=== PATIENT | female | born 1960 | race Caucasian/White ===

== ENCOUNTER → 2024-12-02 | Outpatient (CLI) | payer MEDICARE, OTHER, SELFPAY ==
[2024-12-02 22:12] LABS: Basophil# 0.12 X10^3/uL; Basophil% 1.5 % (0-1); Eosinophil# 0.27 X10^3/uL; Eosinophils% 3.3 % (0-5); Hematocrit 47.5 % (37-47); Lymphocyte % 25.8 % (19-41); Mean Corp Hgb Conc 33.7 g/dL (32-36); Mean Corpuscular Hgb 30.6 pg (27.0-32.0); Mean Corpuscular Volume 90.8 fL (81-99); Mean Platelet Vol. 9.8 fl (6.2-12.0); Monocyte# 0.65 X10^3/uL; NRBC Flagged by Analyzer 0 % (0-5); Neutrophil # 4.95 X10^3/uL (2.7-7.7); Neutrophil % 60.9 % (47-70); Platelet Count 418 K/mm3 (150-450); RBC Distribution Width CV 12.1 % (11.6-14.6); RBC Distribution Width SD 40.2 fl (35.1-43.9); Red Blood Count 5.23 M/mm3 (4.2-5.4); White Blood Count 8.1 K/mm3 (4.4-11.0)
[2024-12-02 22:55] LABS: Hemoglobin A1c 5.2 % (<=5.6)
[2024-12-02 23:08] LABS: ALB/GLOB Ratio 1.3 RATIO (0.9-2.4); AST(SGOT) 22 U/L (<=31); Alanine Aminotransfer ALT/SGPT 17 U/L (<=34); Albumin, Serum 4.5 g/dL (3.4-4.8); Alkaline Phosphatase 97 U/L (35-104); Anion Gap 12 (5-15); BUN 14 mg/dL (4-19); BUN/Creat Ratio 20.3 RATIO (10-20); Calcium,Total 9.8 mg/dL (7.6-11.0); Carbon Dioxide 23.7 mmol/L (21.0-32.0); Chloride 105 mmol/L (98-108); Cholesterol 215 mg/dL (<=200); Creatinine, Serum 0.71 mg/dL (0.70-1.20); EST Glomerular Filtration Rate 94 (>60); Free T3 2.8 pg/mL (2.18-3.98); Globulin 3.4 g/dL (2.2-4.2); Glucose 105 mg/dL (70-99); High Density Lipoprotein 49 mg/dL; Low Density Lipoprotein Calc. 131 mg/dL; Potassium 4.1 mmol/L (3.3-5.1); Protein, Total 7.9 g/dL (5.9-8.4); Sodium Level 140 mmol/L (133-145); Total Bilirubin 0.49 mg/dL (0.00-1.30); Triglycerides 175 mg/dL; Very Low Density Lipoprotein 35 mg/dL (5-40); cholesterol:hdl ratio screen 4.37
[2024-12-02 23:10] LABS: CRP < 3.00 mg/L (0.0-3.0); Rheumatoid Factor < 10.0 IU/mL (<15); Uric Acid 5.8 mg/dL (2.6-6.0)
[2024-12-04 14:08] LABS: Lyme Scn Total Ab w/Rflx Negative (Negative)
[2024-12-05 14:09] LABS: Anti-Centromere B Ab <0.2 AI (0.0-0.9); Anti-Chromatin <0.2 AI (0.0-0.9); Anti-Jo <0.2 AI (0.0-0.9); Anti-Scleroderma-70 AB <0.2 AI (0.0-0.9); Anti-dsDNA Ab <1 IU/mL (0-9); RNP Ab 0.4 AI (0.0-0.9); SJOGREN'S Anti-SS-A test < 0.2 AI (0.0-0.9); SJOGREN'S Anti-SS-B test < 0.2 AI (0.0-0.9); Smith Ab <0.2 AI (0.0-0.9); Vitamin D 1,25-Dihydroxy 74.3 pg/mL (24.8-81.5)
== END | disposition home or self-care (01) ==
PROVIDERS: Referring Provider Nurse Practitioner; Visit Provider Nurse Practitioner
DX: M32.9 Systemic lupus erythematosus, unspecified (principal); R26.2 Difficulty in walking, not elsewhere classified; R29.898 Other symptoms and signs involving the musculoskeletal system; E55.9 Vitamin D deficiency, unspecified; E78.5 Hyperlipidemia, unspecified; E03.9 Hypothyroidism, unspecified; I10 Essential (primary) hypertension; R73.9 Hyperglycemia, unspecified
CPT/HCPCS: 80053; 80061; 82652; 83036; 84443; 84481; 84550; 85025; 86140; 86225; 86235; 86431; 86618

== ENCOUNTER → 2025-04-02 | Outpatient (CLI) | payer MEDICARE, OTHER, SELFPAY ==
[2025-04-02 14:22] LABS: Hematocrit 45.5 % (37-47); Hemoglobin 15.5 g/dL (12.0-15.0); Mean Corp Hgb Conc 34.1 g/dL (32-36); Mean Corpuscular Volume 90.8 fL (81-99); Mean Platelet Vol. 8.9 fl (6.2-12.0); Platelet Count 400 K/mm3 (150-450); RBC Distribution Width CV 11.9 % (11.6-14.6); RBC Distribution Width SD 39.6 fl (35.1-43.9); Red Blood Count 5.01 M/mm3 (4.2-5.4); White Blood Count 7.8 K/mm3 (4.4-11.0)
[2025-04-02 15:06] LABS: Anion Gap 12 (5-15); BUN 13 mg/dL (4-19); BUN/Creat Ratio 19.9 RATIO (10-20); Calcium,Total 9.5 mg/dL (7.6-11.0); Carbon Dioxide 24.9 mmol/L (21.0-32.0); Chloride 105 mmol/L (98-108); Glucose 97 mg/dL (70-99); Potassium 4.2 mmol/L (3.3-5.1)
== END | disposition home or self-care (01) ==
LOC: PSN 13:40
PROVIDERS: PCP Nurse Practitioner; Referring Provider Otolaryngology; Visit Provider Otolaryngology
DX: Z01.812 Encounter for preprocedural laboratory examination (principal); Z01.810 Encounter for preprocedural cardiovascular examination
CPT/HCPCS: 36415; 80048; 85027; 93005

== ENCOUNTER → 2025-04-13 | Outpatient (CLI) | payer MEDICARE, OTHER, SELFPAY ==
--- NOTE | 2025-04-13 10:55 | PHA_PTH ---
PATIENT: CAMPBELL PRECIADO LOC: [facility] U#:[id number] AGE/SX: 65/F ROOM: RE04/13/[address]: Dr. Braden Chopra MD : 1960 BED: DIS: 04/13/2025 SPEC #: [id number] RECD: 04/13/25 15:16 STATUS: KWESI VERONIQUE #: [id number] VA: 04/13/25 10:[address]: Braden Chopra DEPT: SURGICAL PATHOLOGY RECD BY: [address] ENTERED: 04/13/25 15:44 SP TYPE: PHARYNX BX OTHR DR: Diamond Ryan, DECK CADET-C Tissues: A - Nasopharynx, NOS B - Nasopharynx, NOS Procedures: Surgery Specimen Level IV HEADER OPERATION: Biopsy of nasopharynx PRE-OP DIAGNOSIS: Benign neoplasm of nasopharynx TISSUE SUBMITTED: A- Nasopharynx biopsy, B- Nasopharynx (lymph node protocol) MICROSCOPIC DIAGNOSIS A. Nasopharynx, biopsy: * Lymphoid tissue present. * Final diagnosis is PENDING expert consultation at [facility]; a separate report will follow. B. Nasopharynx, "lymph node protocol", biopsy: * Lymphoid tissue present. * A veterans service representative sample was placed in RPMI and forwarded to [facility] for immunophenotyping (flow cytometry); a separate report will follow. MICROSCOPIC DESCRIPTION Slides are reviewed. GROSS DESCRIPTION A. Received in formalin labeled with the patient's name and date of . Designated as " biopsy nasopharynx" are 2 flores tissue fragments, 0.4 cm and 1.2 cm. Entirely submitted in 1 cassette. B. Received in saline labeled the patient's name and date of . Designated as "biopsy nasopharynx (in saline) lymph node protocol" is a 1.0 x 0.7 x 0.2 cm aggregate of flores-pink tissue fragments. A portion is placed in RPMI. The remainder of the specimen is entirely submitted in 1 cassette. [place] 04/13/2025 CPT:[id number] ADDENDUM ADDENDUM ADDENDUM ADDENDUM ADDENDUM ADDENDUM ADDENDUM ADDENDUM ADDENDUM ADDENDUM ADDENDUM ADDENDUM ADDENDUM ADDENDUM ADDENDUM ADDENDUM ADDENDUM ADDENDUM 04/20/2025 11:39 ADDENDUM 04/20/2025 11:39 ADDENDUM 04/20/2025 11:39 ADDENDUM 04/20/2025 11:39 ADDENDUM 04/20/2025 11:39 ADDENDUM 04/21/2025 09:28 This addendum is added to incorporate an outside pathology consultation report. (Note: this report is ONLY for the part B flow cytometry test. The FINAL DIAGNOSIS from [facility] is PENDING.) B) Laboratory Interpretation: There is no immunophenotypic evidence of an abnormal population of B lymphocytes or T lymphocytes. Phenotypic Description: Flow cytometric analysis of the nasopharynx lymph node was performed using a ten-color technique with a gating strategy based on CD45 staining and light side scatter characteristics. The concentrated specimen is adequate based on a viability of 98.2% as assessed by 7AAD dye exclusion. Lymphocytes represent 97.4% of the total events analyzed. Of the lymphocytes: 34.5% are B cells (CD19+) with a [place]:Lambda ratio of 16.11, 65.4% are T cells (CD3+) with a CD4:CD8 ratio of 4.7 and 0.7% are NK cells (positive for CD56 and/or CD16 and negative for CD3). Please see complete above mentioned consultation report in EMR This addendum is added to incorporate an outside pathology consultation report and FINAL DIAGNOSIS. The case was examined at [facility] by Dr. Litzy Guevara (#[id number]) and the following diagnosis was rendered. A. Nasopharynx, biopsy: Prominent lymphoid tissue, favor reactive, see comment and microscopic description. B. Nasopharynx, "lymph node protocol", biopsy: Prominent lymphoid tissue, favor reactive, see comment and microscopic description. DIAGNOSIS COMMENT: Flow cytometric analysis demonstrates a polytypic B-cell population without evidence of light chain restriction or aberrant antigen expression and no evidence of an abnormal T-cell population. Overall the morphologic and immunophenotypic findings support a reactive process; no overt evidence of a clonal lymphoproliferative disorder is identified. MICROSCOPIC DESCRIPTION: Histologic sections show benign respiratory epithelium with underlying lymphoid tissue with focal retained follicles, including polarized germinal centers. Immunohistochemical / in-situ hybridization stains performed show focal CD20 and PAX5 positive follicles some of which contain CD10 positive and BCL2 negative germinal centers with CD23 positive follicular dendritic cell meshworks. Interfollicular CD3 and CD5 positive T-cells are present. Staining for BCL1 is negative. Please see complete above mentioned consultation report in EMR
== END | disposition home or self-care (01) ==
PROVIDERS: PCP Nurse Practitioner; Referring Provider Otolaryngology; Visit Provider Otolaryngology
DX: D10.6 Benign neoplasm of nasopharynx (principal)
CPT/HCPCS: 88305